=== PATIENT | female | born 1950 | race Caucasian/White ===

== ENCOUNTER 2020-09-17 09:12 | Outpatient (REF) | payer MEDICARE, SELFPAY ==
--- NOTE | ~2020-09-17 | MM_ITS ---
EXAMINATION: BONE DENSITOMETRY CLINICAL INDICATION: Age-related osteoporosis without current pathological fracture. COMPARISON: None (current study represents initial baseline exam). TECHNIQUE: Using a [employer] DXA System (software version: 13.1) manufactured by [employer], dual-energy x-ray absorptiometry was performed of the lumbar spine and right hip. The patient has had a left hip fracture. The images are of good technical quality. Summary results are attached. FINDINGS: AP SPINE L1-L2 (excluding L3 and L4): The data of L1-L4 has been changed to exclude the L3 and L4 vertebral bodies, because degenerative changes at these levels may cause overestimation of lumbar spine density. BMD 0.897 g/cm2, Z-score -0.6, T-score -2.2, osteopenia. RIGHT FEMUR, NECK: BMD 0.579 g/cm2, Z-score -1.6, T-score -3.3, osteoporosis. RIGHT FEMUR, TOTAL: BMD 0.635 g/cm2, Z-score -1.5, T-score -3.0, osteoporosis. IDENTIFIED RISK FACTORS: History of adult fracture. Rheumatoid arthritis. Height loss. Low calcium intake. Menopause. HISTORY OF FRACTURE: Femur/hip. MEDICATIONS: Vitamin D. MM/XR DEXA axial skeleton IMPRESSION: 1. DIAGNOSIS: Severe osteoporosis based on the lowest T-score value of -3.3 in the femoral neck and the prior history of fracture applying World Health Organization criteria. 2. 10-YEAR FRACTURE RISK PREDICTION, FRAX: Major osteoporotic fracture (clinical spine, forearm, hip or shoulder) 26.1%. Hip fracture 10.6%. 3. Treatment Recommendations: NOF guidelines recommend consideration for treatment in postmenopausal women and men age 50 and older presenting with the following: -A hip or vertebral (clinical or morphometric) fracture. -T-score less than or equal to -2.5 at the femoral neck or spine after appropriate evaluation to exclude secondary causes. -Low bone mass at the hip or spine and a 10-year fracture probability by FRAX of greater than or equal to 3% for hip fracture or greater than or equal to 20% for major osteoporotic fracture based on the [place] adapted WHO algorithm. 4. Other Recommendations: All treatment decisions require clinical judgment and consideration of individual patient factors, including patient preferences, comorbidities, previous drug use, risk factors not captured in the FRAX model (e.g. frailty, falls, vitamin D deficiency, increased bone turnover, interval significant decline in bone density) and possible under or overestimation of fracture risk by FRAX. Additional medical evaluation for secondary cause of low bone mineral density may be appropriate. FUTURE SCAN RECOMMENDATION: People with diagnosed cases of osteoporosis or at high risk for fracture should have regular bone mineral density tests. For patients eligible for Medicare, routine testing is allowed once every 2 years. The testing frequency can be increased to one year for patients who have rapidly progressing disease, those who are receiving or discontinuing medical therapy to restore bone mass, or have additional risk factors.
--- NOTE | ~2020-09-17 | MM_ITS ---
EXAMINATION: MM SCREENING DIGITAL BREAST TOMOSYNTHESIS, BILATERAL CLINICAL INFORMATION: Screening. Asymptomatic. The lifetime risk of breast cancer based on the Tyrer-Cuzick Model is 2%. COMPARISON: Outside mammography: 05/28/2016, 04/04/2014, 08/01/2013 ([facility]). TECHNIQUE: Digital breast tomosynthesis is performed in both the craniocaudal and mediolateral oblique views along with computer-aided detection (CAD). Synthesized 2D images are generated from the tomosynthesis. FINDINGS: There are scattered areas of fibroglandular density (ACR BI-RADS breast composition Category b). Parenchymal pattern is similar to prior studies. There is no significant mass or architectural abnormality or developing density. There are scattered bilateral benign coarse and vascular calcifications. The axilla and skin contours are unremarkable. MM/MM tomosynthesis screening BI IMPRESSION: No mammographic evidence of malignancy. ASSESSMENT: BI-RADS 2: Benign RECOMMENDATION: Routine annual mammography screening. This patient's information was entered into a reminder system with a target due date for their next mammogram.
== END 2020-09-17 09:13 | disposition home or self-care (01) ==
LOC: HO.MAMMO 09:12
PROVIDERS: PCP Pediatrics; Visit Provider Pediatrics
DX: Z12.31 Encounter for screening mammogram for malignant neoplasm of breast (principal); Z13.820 Encounter for screening for osteoporosis; M81.0 Age-related osteoporosis without current pathological fracture; M06.9 Rheumatoid arthritis, unspecified; Z78.0 Asymptomatic menopausal state; Z87.81 Personal history of (healed) traumatic fracture; Z79.899 Other long term (current) drug therapy
CPT/HCPCS: 77063; 77067; 77080

== ENCOUNTER 2022-01-22 12:31 | Outpatient (REF) | payer OTHER, SELFPAY ==
--- NOTE | ~2022-01-22 | MM_ITS ---
EXAMINATION: MM SCREENING DIGITAL BREAST TOMOSYNTHESIS, BILATERAL CLINICAL INFORMATION: Screening. Asymptomatic. The lifetime risk of breast cancer based on the Tyrer-Cuzick Model is 4%. COMPARISON: Mammography: September 17, 2020 and studies dating back to August 01, 2013 TECHNIQUE: Digital breast tomosynthesis is performed in both the craniocaudal and mediolateral oblique views along with computer-aided detection (CAD). Synthesized 2D images are generated from the tomosynthesis. FINDINGS: There are scattered areas of fibroglandular density (ACR BI-RADS breast composition Category b). There are no significant masses, abnormal calcifications, or other abnormalities. MM/MM tomosynthesis screening BI IMPRESSION: No significant changes from prior exam. ASSESSMENT: BI-RADS 1: Negative RECOMMENDATION: Routine annual mammography screening. This patient's information was entered into a reminder system with a target due date for their next mammogram.
== END 2022-01-22 12:32 | disposition home or self-care (01) ==
LOC: HO.MAMMO 12:31
PROVIDERS: Visit Provider Pediatrics
DX: Z12.31 Encounter for screening mammogram for malignant neoplasm of breast (principal)
CPT/HCPCS: 77063; 77067

== ENCOUNTER 2022-11-03 08:51 | Outpatient (REF) | payer OTHER, SELFPAY ==
[2022-11-03 14:37] LABS: MANUAL DIFF FLAG NO
[2022-11-03 14:43] LABS: Basophils Absolute Auto 0.1 X10*3/uL (0.0-0.2); Basophils Percent Auto 0.7 % (0-2); Eosinophils Absolute Auto 0.3 X10*3/uL (0.0-0.4); Eosinophils Percent Auto 3.5 % (0-4); Hematocrit 47.3 % (37.0-47.0); Hemoglobin 14.9 g/dl (12.0-16.0); Imm Gran Abs Auto 0.02 X10*3/uL (0.00-0.03); Imm Gran Pct Auto 0.3 % (0.0-0.4); Lymphocytes Absolute Auto 2.6 X10*3/uL (1.2-4.9); Lymphocytes Percent Auto 33.8 % (20-40); Mean Corpuscular HGB Conc 31.5 g/dl (31.0-35.0); Mean Corpuscular Hemoglobin 27.7 pg (27.0-33.0); Mean Corpuscular Volume 88.1 fL (80.0-98.0); Mean Platelet Volume 11.8 fL (9.4-12.3); Monocytes Absolute Auto 0.5 X10*3/uL (0.1-1.2); Monocytes Percent Auto 6.2 % (2-11); Neutrophils Absolute Auto 4.2 x10*3/uL (2.0-8.3); Neutrophils Percent Auto 55.5 % (45-73); Platelet Count 205 X10*3/uL (160-400); Red Blood Count 5.37 X10*6/uL (4.20-5.50); White Blood Count 7.6 X10*3/uL (4.8-10.8)
[2022-11-03 15:21] LABS: Alanine Aminotransferase 43 U/L (0-31); Albumin Level 4.2 g/dL (3.5-5.0); Alkaline Phosphatase 99 U/L (39-117); Anion Gap 17 (12-20); Aspartate Amino Transferase 25 U/L (5-31); Bilirubin Direct 0.2 mg/dL (0.0-0.5); Bilirubin Total 0.6 mg/dL (0.0-1.0); Blood Urea Nitrogen 19 mg/dL (9-16); Calcium 9.9 mg/dL (8.4-10.2); Carbon Dioxide 25 mmol/L (22-29); Chloride 107 mmol/L (96-108); Cholesterol 92 mg/dL (<200); Estimated Glomerular Filt Rate 60; Glucose Fasting 198 mg/dL (60-99); HDL Cholesterol 28 mg/dL (>40); LDL Cholesterol Calculated 27 mg/dL (<100); Sodium 144 mmol/L (135-145); Total Protein 7.2 g/dL (6.5-8.0); Triglycerides 185 mg/dL (<150)
[2022-11-03 15:39] LABS: TSH reflex Free T4 3.35 uIU/mL (0.32-4.0); Vitamin D 25-OH Total 44.8 ng/mL (>30)
[2022-11-03 15:40] LABS: Vitamin B12 410 pg/mL (200-900)
[2022-11-03 16:03] LABS: Creatinine Urine 59.07 mg/dL; Microalbumin Urine < 5.0 mg/L
== END 2022-11-03 08:52 | disposition home or self-care (01) ==
LOC: HO.CHCLDS 08:51
PROVIDERS: Visit Provider Pediatrics
DX: E11.9 Type 2 diabetes mellitus without complications (principal); M81.0 Age-related osteoporosis without current pathological fracture
CPT/HCPCS: 36415; 80048; 80061; 80076; 82043; 82306; 82607; 84443; 85025

== ENCOUNTER 2024-07-05 15:29 | Outpatient (REF) | payer OTHER, SELFPAY ==
--- OUTSIDE RECORDS SUMMARY | 2024-07-05 16:25 | XMS_ITS | Encounter Summary ---
Author Organization [employer] Address [address] [place] [address] Care Team Providers Care Broke Beater Operator Name Role Phone Christina Mckeon MD Primary Care Provider [phone] Fely So PharmD Unavailable [phone] Encounter Details Date Type Department Care Team (Latest Contact Info) Description 07/05/2024 Travel Social History Tobacco Use Types Packs/Day Years Used Date Smoking Tobacco: Never Passive Smoke Exposure: Never Smokeless Tobacco: Never Depression Answer Date Recorded Patient Health Questionnaire-9 Score 6 06/08/2024 Patient Health Questionnaire-9 Score 6 06/08/2024 Last PHQ-9: Questionnaire Data Not on file 0 06/08/2024 Housing Stability Answer Date Recorded What is your housing situation today? I have fidel ocasio 06/08/[address] you li ve. Do you have problems with any of the following? None of the above 06/08/2024 Food Insecurity Answer Date Recorded Within the past 12 months, y ou worried that your food would run out before you got money to buy more: Sometimes True 2024 Within the past 12 months,th e food you bought just didn't last and you didn't have enough money to get more: Never True 06/08/2024 Transportation Answer Date Recorded In the past 12 months, has l ack of transportation kept you from medical appts, meetings, work or from getting things needed for daily living? No 06/08/2024 Utilities Answer Date Recorded In the past 12 months, has t he electric, gas, oil or water company threatened to shut off services in your home? No 06/08/2024 Depression Answer Date Recorded Patient Health Questionnaire-2 Score 2 06/08/2024 Internet Access Answer Date Recorded Internet Access Q1 Yes 06/08/2024 Internet Access Q2 Not on file 06/08/2024 Comments Unknown Sex and Gender Information Value Date Recorded Sex Assigned at Female 01/05/2022 10:20 AM EDT Legal Sex Female 10:20 AM EDT Gender Identity Female 01/05/2022 10:20 AM EDT Sexual Orientation Straight 01/05/2022 10 :20 AM EDT documented as of this encounter Plan of Treatment Upcoming Encounters Date Type Department Care Team (Late st Contact Info) Description 08/10/2024 3:15 PM EDT Office Visit [facility] [address] [place] [address] Christina Mckeon MD [address] [place] [address] 08/28/2024 3:00 PM EDT Medication Management [facility] [address] [place] [address] Fely So, PharmD [address] [place] [address] documented as of this encounter Visit Diagnoses Not on filedocumented in this encounter Additional Health Concerns Assessment Noted Time PHQ-9 Depression Total Score: 6 06/09/19 25 9:34 AM EDT documented as of this encounter Care Teams Broke Beater Operator Relationship Specialty Start Date End Date Christina Mckeon MD [address] [place] [address] PCP - General Family Medicine 03/08/18 Fely So, PharmD [address] [place] [address] Pharmacist Internal Medicine 05/03/24 documented as of this encounter
--- OUTSIDE RECORDS SUMMARY | 2024-07-05 16:25 | XMS_ITS | Encounter Summary ---
Author Organization [employer] Address [address] [place] [address] Care Team Providers Care Bedspread Inspector Name Role Phone Christina Mckeon MD Primary Care Provider [phone] Fely So PharmD Unavailable [phone] Reason for Visit * Reason Onset Date Comments referral status 05/11/2022 Encounter Details Date Type Department Care Team ([facility] st Contact Info) Description 05/11/2022 Telephone [facility] [address] [place], [place] [id number] Christina Mckeon MD [address] [place], [place] [phone] referral status Social History Tobacco Use Types Packs/Day Years Used Date Smoking Tobacco: Never Smokeless Tobacco: Never Depression Answer Date Recorded Patient Health Questionnaire-9 Score 11 03/13/2022 Depression Answer Date Recorded Patient Health Questionnaire-2 Score 5 03/13/2022 Comments Unknown Sex and Gender Information Value Date Recorded Sex Assigned at Female 01/05/2022 10:20 AM EDT Legal Sex Female 10:20 AM EDT Gender Identity Female 01/05/2022 10:20 AM EDT Sexual Orientation Straight 01/05/2022 10 :20 AM EDT COVID-19 Exposure Response Date Recorded In the last 10 days, have yo u been in contact with someone who was confirmed or suspected to have Coronavirus/COVID-19? No / Unsure 04/29/2022 10:03 AM EST documented as of this encounter Miscellaneous Notes * Telephone Encounter - Elham Sifuentes - 05/11/2022 12:26 PM EST Tc from pt requesting status on referral for orthopaedic . Pt would like a call back to where referral will be sent ? documented in this encounter Plan of Treatment Upcoming Encounters Date Type Department Care Team (Late st Contact Info) Description 08/10/2024 3:15 PM EDT Office Visit [facility] [address] [place] [address] Christina Mckeon MD [address] [place] [address] 08/28/2024 3:00 PM EDT Medication Management [facility] [address] [place] [address] Fely So PharmD [address] [place] [address] documented as of this encounter Visit Diagnoses Diagnosis Dietary counseling Dietary surveillance and counseling Exercise counseling documented in this encounter Additional Health Concerns Assessment Noted Time PHQ-9 Depression Total Score: 11 023 9:52 AM EST documented as of this encounter Care Teams Bedspread Inspector Relationship Specialty Start Date End Date Christina Mckeon MD [address] [place] [address] PCP - General Family Medicine 03/08/18 Fely So, Raúl [address] [place] [address] Pharmacist Internal Medicine 05/03/24 documented as of this encounter
--- OUTSIDE RECORDS SUMMARY | 2024-07-05 16:25 | XMS_ITS ---
Author Organization [facility] Address [address] [place] [address] [place] [id number] Care Team Providers Care Hollow Handle Knife Assembler Name Role Phone Christina Mckeon Primary Care Provider Unavailab Mervat Benson Unavailable [phone] Encounters Encounter Location Date Provider Diagnosis [address] [address] 07/08/2023 Mervat Mackey Plan Of Treatment No Information Progress Notes * Killian LOGANB:1949 (74 yo F)Acc No.[id number]:07/08/2023 Progress Note Patient:?DOREEN Kelly Provider:?Mervat Mackey DPM :1950???Age:73 Y???Sex:Female D ate:07/08/2023 Address:[address] [place] [address], [place] [address] [address], [id number] Pcp:Christina Mckeon Subjective: * Chief Complaints: * ??? * Medical History:? Objective: * Vitals:? Assessment: Plan: * Treatment: * Images: * The named appointment provid er may or may not be the originator of this progress note, and it is not deemed complete until electronically signed by the appointment provider. Sign off status: Pending * Provider:?Mervat Mackey DPM Date:?04/2023 Generated for Joao pitts/Arturo/eTransmitting on:?07/05/2024 04:24 PM EDT
--- OUTSIDE RECORDS SUMMARY | 2024-07-05 16:25 | XMS_ITS | Data Portability ---
Author Organization [employer] [place] in - jigl Address [address] [place] [phone] Care Team Providers Care Value Analysis Coordinator Name Role Phone CHRISTOPHER MCNALLY Primary Care Provider [phone] HIM [facility] OTHER [facility] Referring Provider [facility] OTHER Assessment Encounter Date Assessment Date Assessment LastModified by Organization Details LastModified Time 12/12/2022 12/12/2022 I provided real -time medical direction via phone for this encounter, and was available for additional phone based assistance as needed. I have reviewed and agree with the Assessment and Plan as documented by the Sack Filler. Patient given the opportunity to ask questions. As per above, Patient requesting another Toradol shot as she did not complete her appointment with PCP on the 4th as described in the previous visit. Asking also for prescriptions for Lidoderm patch and Tylenol. Discussed risk and benefits of continued Toradol use so we will use a smaller dose at 15 mg x 1. We stressed the importance of getting in to her primary care physician. I did call in prescriptions for Tylenol and lighted derm. Stressed the importance that we would not continue to use Toradol given the fact that she is anticoagulated and repeated doses may cause kidney damage as well as increase her risk for bleeding. Patient voiced understanding. We discussed the diagnostic uncertainty of home visits and the risk associated with this. In this case, the patient and I felt this to be an acceptable and reasonable amount of risk given the benefit of avoiding an ED visit. We discussed the need to seek care urgently/emergentl y in the setting of any new or worsening serious symptoms, particularly fever chills lightheadedness altered mental status [email or web address] Not available 12/12/2022 10:36:31 05/25/2023 05/25/2023 Ms. Kelly Silver is a 73yoF w/ a PmHx of DM2, HTN who is seen today for further evaluation of weakness and cough. Ms. Silver reports that for the past two days she has just been feeling unwell, with significant weakness and fatigue. She has developed a cough productive of brownish sputum and has had chills and subjective fevers at home. Her blood sugar has been running higher than usual and today was in the 300s and she requested an instED evaluation. She denies chest pain, nausea/vomiting, or abdominal pain. She does note that she was sick with a cold/virus three weeks ago but believed she fully recovered from that prior to gettin sick today. VSS. Sack Filler on site reports clear focal rhonchi of the LLL. POC COVID/flu negative. POC glucose 360. POC labs obtained and reassuringly with a normal bicarb, no anion gap, normal creatinine. Given 500cc of IVF, 1g IV ceftriaxone, and 500mg of PO azithromycin. Will treat as a post-viral bacterial pneumonia. Encouraged PO fluids and monitoring her blood sugar. Rx for cefpodoxime and azithromycin for CAP coverage sent to pharmacy. Red flags reviewed with space systems operations manager. Primary team, Ms. Silver would benefit from a check in over the next few days to make sure she's doing better. Not available 05/25/2023 14:50:47 08/09/2023 08/09/2023 Ms. Kelly Silver is a 73yoF w/ a PmHx of HTN, CAD, DM2 on dual antiplatelet therapy who is seen today for further evaluation after a fall last week. Ms. Silver reports that last week she wears visiting family in [facility] when she suffered a mechanical trip and fall while outside. She reports tripping over a stone outside and fell backwards and hit the back of her head. Since the fall, she reports increasing forgetfulness and word finding difficulty. She states that she will sometimes start talking and then lose the ability to complete the sentence 2/2 word finding difficulty. She has also been having intermittent blurry vision. VSS. Sack Filler on site reports hematoma on posterior occiput. Bruise on left knee without bony tenderness. While higher risk for intracranial injury after a fall on antiplatelet therapy, the fact that she is neurologically intact several days after the incident makes acute catastrophic ICH less likely. Her neurologic complaints after a clear strike are concerning though and she would benefit from CT imaging to evaluate for bleed in order to guide continued antiplatelet therapy and follow up. Recommended ED presentation, which she will pursue this afternoon when her son arrives home around 2:30pm. Primary team, Ms. Silver would benefit from follow up in the next week or so. If head imaging negative, she would like benefit from a post-concussive evaluation. Not available 08/09/2023 12:25:53 09/15/2023 09/15/2023 I provided real -time medical direction via phone for this encounter, and was available for additional phone based assistance as needed. I have reviewed the Assessment and Plan as documented by the Sack Filler. We discussed the diagnostic uncertainty of home visits and the risk associated with this. In this case I advised the patient via the medic that her EKG is nonspecific but that we cannot do a cardiac workup in home, I I requested the medic explain I cannot rule out any cardiac event based on 1 EKG. she did not want to go to the ER -patient verbalized understanding to the medic and advised if she had any worsening or changing of her chest discomfort along with the other red flags she needed to go in to the ER. She verbalized understanding. The patient given the opportunity to ask questions. Advised if develops worsening or different CP/severe SOB/turning blue/uncontrolled n/v/d or black/bloody emesis or stool/ AMS/ syncope/ hi fever/ to call 911- verbalized understanding of instruction [email or web address] Not available 09/15/2023 20:33:02 Plan of Treatment Reminders Order Date Submit Date Provider Last Modified By Organization Details Last Modified Time Details Appointments None recorded. Lab BMP, serum or plasma 2023 024 [email or web address] 0 [facility], [address] [place] [address], [phone] 4 20:31:59 urinalysis, dipstick 2023 024 [email or web address] 0 [facility], [address] [place] [address], [phone] 4 20:32:01 rapid flu (A+B) 2023 024 [email or web address] 0 [facility], [address] [place] [address], [phone] 4 20:32:02 rapid SARS CoV 2 Ag, QL IA, respiratory specimen 2023 024 [email or web address] 0 [facility], [address] [place] [address], [id number] 4 20:32:03 Referral None recorded. Procedures None recorded. Surgeries None recorded. Imaging electrocard iogram 2023 024 [email or web address] 0 [facility], [address] [place] [address], [id number] 4 20:31:56 Medication Orders cefpodoxime 200 mg tablet 2023 024 [id number], [address] [place], [address], 4 14:35:18 azithromyci n 250 mg tablet 2023 024 [id number], [address] [place], [address], 4 14:35:16 ketorolac 15 mg/mL injection solution 2022 023 [email or web address] Not available 10:38:48 Tylenol Extra Strength 500 mg tablet 2022 023 [id number], [address] [place], [address], 3 10:38:56 lidocaine 4 % topical patch 2022 023 [id number], [address] [facility] [place], [address], 3 10:38:55 Patient TargetsNo targets recorded. Patient InstructionsNo instructions recorded. Reason for Referral None Reported. Results Created Date Observation Date Name Description Value Unit Range Abnormal Flag Note LastModifiedBy Organization Detail LastModifiedTime 12/08/19 23 12/07/2022 gluco se, finge rstic k, blood Blood Glucose: mg/dl 339 Not Available [address], [address] [place] [address] 12/07/2022 22:00:45 09/15/19 24 09/15/2023 urina lysis , dipst ick Leukocytes neg Not Available [facility] [address] [place] [address], [address] [place] [address] 09/15/2023 12:35:35 09/15/19 24 09/15/2023 urina lysis , dipst ick Nitrite negati ve Not Available Main - [facility] [address] [place] [address], [address] [place] [address] 09/15/2023 12:35:35 09/15/19 24 09/15/2023 urina lysis , dipst ick pH 5 Not Available Main - [facility] [address], [address] [place] [address] 09/15/2023 12:35:35 09/15/19 24 09/15/2023 urina lysis , dipst ick Specific Cove 1.015 Not Available [facility] [address] [place] [address], [address] [place] [address] 09/15/2023 12:35:35 09/15/19 24 09/15/2023 urina lysis , dipst ick Appearance clear Not Available Main - [facility] [address] [place] [address], [address] [place] [address] 09/15/2023 12:35:35 09/15/19 24 09/15/2023 urina lysis , dipst ick Color yellow Not Available Main - [facility] [address], [address] [place] [address] 09/15/2023 12:35:35 09/15/19 24 09/15/2023 BMP, serum or plasm a GLU . He is387 Not Available Main - [facility] [address] [place] [address], [address] [place] [address] 09/15/2023 12:35:34 09/15/19 24 09/15/2023 rapid SARS CoV 2 Ag, QL IA, respi rator y speci men rapid SARS CoV 2 Ag, QL IA, respiratory specimen negati ve Not Available [facility] [address] [place] [address], [address] [place] [address] 09/15/2023 12:35:43 09/15/19 24 09/15/2023 rapid flu (A+B) Flu negati ve Not Available Main - [facility] [address] [place] [address], [address] [place] [address] 09/15/2023 12:35:41 09/15/19 24 09/15/2023 niranjan lafleur am No observ ation record ed. [email or web address] [address], [phone] 09/15/2023 20:31:54 Result Notes None recorded. Procedures Surgical History None recorded. Imaging Results Imaging Date Name Status LastModified by Organization Details LastModified Time 09/15/2023 electrocardiogram completed [email or web address] [address], [phone] 09/15/2023 20:31:54 Procedure Notes None recorded. Medical Equipment None Reported. Allergies Allergen ID Allergen Name Allergen Category Reaction Reaction Severity Criticality Documentation Date Start Date Code Code System Note Provider Name and Address Organization Details Recorded Time 3414 oxycodone medicatio n Not available Not available Not available 12/07/2022 7804 RxNorm Una Miranda MD [address] [place] [address],[address], [place], [address] [employer] 3 21:50:45 9151 acetamino phen medicatio n Not available Not available Not available 01/04/2024 161 RxNorm Not Available [employer] 4 03:49:28 9152 Product containin g penicilli n (product) medicatio n Not available Not available Not available 01/04/2024 06631 8001 SNOMED Not Available [employer] 4 03:49:28 Medications Name Sig Start Date Stop Date Status Note LastModified by Organization Details LastModified Time medbox status USE DIRECTED active Not Available Not Available No t Available atorvastatin 40 mg tablet TAKE ONE TABLET AT BEDTIME active Not Available Not Available No t Available atorvastatin 80 mg tablet TAKE ONE TABLET EVERY NIGHT AT BEDTIME active Not Available Not Available N ot Available venlafaxine ER 75 mg capsule,exte nded release 24 hr TAKE ONE CAPSULE EVERY MORNING WITH FOOD active Not Available Not Available No t Available cefpodoxime 200 mg tablet TAKE 1 TABLET BY MOUTH EVERY 12 HOURS FOR 7 DAYS active Not Available Not Available N ot Available azithromycin 250 mg tablet TAKE 1 TABLET BY MOUTH EVERY DAY FOR 4 DAYS active Not Available Not Available No t Available lisinopril 20 mg tablet TAKE ONE TABLET BY MOUTH EVERY MORNING active Not Available Not Available No t Available melatonin 3 mg tablet TAKE TWO TABLETS EVERY DAY AT BEDTIME active Not Available Not Available N ot Available aspirin 81 mg tablet,delay ed release TAKE ONE TABLET EVERY MORNING active Not Available Not Available No t Available acetaminophe n 500 mg tablet TAKE 1 TABLET BY MOUTH TWICE A DAY FOR 15 DAYS active Not Available Not Available No t Available ketorolac 30 mg/mL (1 mL) injection solution 0.5 mL IM x1 2022 active Not Available Not Available Not Avai lable meclizine 25 mg tablet TAKE ONE TABLET THREE TIMES DAILY NEEDED FOR DIZZINESS active Not Available Not Available No t Available ascorbic acid (vitamin C) 250 mg tablet TAKE ONE TABLET EVERY MORNING WITH iron active Not Available Not Available No t Available cephalexin 500 mg capsule TAKE ONE CAPSULE FOUR TIMES DAILY UNTIL FINISHED active Not Available Not Available No t Available pantoprazole 40 mg tablet,delay ed release TAKE ONE TABLET EVERY MORNING BEFORE BREAKFAST active Not Available Not Available No t Available oseltamivir 75 mg capsule TAKE ONE CAPSULE TWICE DAILY UNTIL FINISHED active Not Available Not Available No t Available ropinirole 0.5 mg tablet TAKE ONE TABLET EVERY NIGHT AT BEDTIME ONE TO THREE HOURS BEFORE BEDTIME active Not Available Not Available No t Available lisinopril 5 mg tablet TAKE ONE TABLET EVERY MORNING active Not Available Not Available No t Available metoprolol succinate ER 25 mg tablet,exten ded release 24 hr TAKE ONE TABLET EVERY MORNING active Not Available Not Available No t Available loratadine 10 mg tablet TAKE ONE TABLET EVERY MORNING active Not Available Not Available No t Available Alcohol Prep Pads USE THREE TIMES DAILY DIRECTED active Not Available Not Available Not Available nitrofuranto in monohydrate/ macrocrystal s 100 mg capsule TAKE 1 CAPSULE BY MOUTH TWICE A DAY FOR 7 DAYS active Not Available Not Available No t Available UltiCare Pen Needle 31 gauge x 5/16 USE ONE FOUR TIMES DAILY active Not Available Not Available No t Available cholecalcife rol (vitamin D3) 25 mcg (1,000 unit) tablet TAKE ONE TABLET IN THE MORNING AND EVENING active Not Available Not Available Not Available FeroSul 325 mg (65 mg iron) tablet TAKE ONE TABLET EVERY MORNING active Not Available Not Available No t Available Lantus Solostar U-100 Insulin 100 unit/mL (3 mL) subcutaneous pen INJECT 55 UNITS SUBCUTANEOU SLY AT BEDTIME active Not Available Not Available No t Available diclofenac 1 % topical gel APPLY 2 GRAM'S TO AFFECTED AREA(s) TWICE DAILY NEEDED active Not Available Not Available No t Available Brilinta 90 mg tablet TAKE ONE TABLET IN THE MORNING AND EVENING active Not Available Not Available Not Available Antacid-Anti gas 200 mg-200 mg-20 mg/5 mL oral suspension TAKE 10 ml's BY MOUTH FOUR TIMES DAILY NEEDED FOR STOMACH active Not Available Not Available Not Available OneTouch Verio test strips TEST BLOOD SUGAR TWICE DAILY active Not Available Not Available No t Available Jardiance 10 mg tablet TAKE ONE TABLET EVERY MORNING active Not Available Not Available No t Available Trulicity 1.5 mg/0.5 mL subcutaneous pen injector INJECT ONE PEN (=1.5MG) SUBCUTANEOU SLY ONCE A WEEK DIRECTED active Not Available Not Available No t Available Trulicity 0.75 mg/0.5 mL subcutaneous pen injector INJECT ONE PEN (=0.75MG) SUBCUTANEOU SLY ONCE A WEEK DIRECTED active Not Available Not Available No t Available Pentips Pen Needle 32 gauge x 5/32 USE FOUR TIMES DAILY active Not Available Not Available Not Available OneTouch Verio Flex Meter active Not Available Not Available Not Available OneTouch Delica Plus Lancet 33 gauge TEST BLOOD SUGAR TWICE DAILY active Not Available Not Available No t Available Salonpas (lidocaine) 4 % topical patch APPLY 1 PATCH IN PAINFUL AREA FOR 12 HOURS THEN REMOVE FOR 12 HOURS, THEN REPEAT. active Not Available Not Available No t Available Vitals Date Recorded Respiratory rate Heart rate Oxygen saturation Oxygen saturation in Arterial blood by Pulse oximetry Body temperature Systolic blood pressure Diastolic blood pressure Provider Name and Address Organization Details Last Updated DateTime 3 16 /min 81 /min 94 % 94 % 98.4 [degF] 126 mm[Hg] 75 mm[Hg] Not Available [employer] 3 10:32:05 Date Recorded Body weight Oxygen saturation Oxygen saturation in Arterial blood by Pulse oximetry Body temperature Heart rate Respiratory rate Body height Systolic blood pressure Diastolic blood pressure Provider Name and Address Organization Details Last Updated DateTime 4 53199.2 08 g 96 % 96 % 99 [degF] 80 /min 18 /min 157.48 cm 125 mm[Hg] 78 mm[Hg] Not Available [employer] 4 11:36:25 Date Recorded Body weight Body height Body temperature Oxygen saturation Oxygen saturation in Arterial blood by Pulse oximetry Respiratory rate Heart rate Systolic blood pressure Diastolic blood pressure Provider Name and Address Organization Details Last Updated DateTime 4 43894.8 g 160.02 cm 99.1 [degF] 95 % 95 % 16 /min 72 /min 172 mm[Hg] 87 mm[Hg] Not Available [employer] 4 13:42:17 Date Recorded Oxygen saturation Oxygen saturation in Arterial blood by Pulse oximetry Heart rate Respiratory rate Systolic blood pressure Diastolic blood pressure Provider Name and Address Organization Details Last Updated DateTime 4 95 % 95 % 78 /min 16 /min 158 mm[Hg] 75 mm[Hg] Not Available [employer] 4 12:18:50 Date Recorded Body weight Body temperature Respiratory rate Heart rate Oxygen saturation Oxygen saturation in Arterial blood by Pulse oximetry Systolic blood pressure Diastolic blood pressure Provider Name and Address Organization Details Last Updated DateTime 4 17110.1 68 g 98.5 [degF] 16 /min 84 /min 96 % 96 % 158 mm[Hg] 82 mm[Hg] Not Available [employer] 4 12:08:55 Social History None recorded. Functional Status None recorded. Mental Status None recorded. Family History Nothing Reported. Medical History No medical history recorded. Gynecological HistoryNo gynecological history recorded. Obstetrics History GPAL:G 0 P 0 0 0 0 Past Encounters Encounter ID Performer Location Encounter Start Date Encounter Closed Date Diagnosis/Indication Diagnosis SNOMED-CT Code Diagnosis ICD10 Code Diagnosis Note [id number] Una Miranda MD Main - [facility] [address] [place] [phone] 12/07/2022 12:15:40 12/07/2022 23:00:09 Musculoskeletal pain 311128228 M79.10 Patient s/p fall with work-up/im aging already completed at [facility] ED-see medic note above no fractures revealed in her left upper extremity apparently and no rib fractures reported to the patient on chest CT. due to subcutaneo us lump on her left chest could be an organized subcutaneo us hematoma post fall or she could have a hairline rib fracture that was not picked up on the CT. Patient denies history of peptic ulcer disease, GERD, or known ckd-her renal function was normal on 05/07/2021 BUN was 16 and creatinine 0.85. However the patient is on Brilinta and aspirin. I advised we can give 1 dose of ketorolac for pain control but would be very low-dose to give repeat doses due to the risk of CHANO and bleeding with repeated doses of this and sent Has appointmen t with PCP on Wednesday- 12/09-advis ed to keep it as her PCP in a wish to get further imaging. advised ice / wrapped in a towel alternatin g w/ gentle heat q 3-4H w/a to affected areas-advi sed to hold ribs under her left breast with a painful hard lump is, with a small blanket or pillow if she coughs or when practicing deep breathing for comfort-me dic reviewed red flags. Patient is also significan tly hyperglyce rene advised not to skip doses [place] [id number] Kristin Monaco MD Main - [facility] [address] [place] [phone] 12/12/2022 10:32:04 12/15/2022 00:36:55 Muscle pain [id number] M79.10 [id number] Rodolfo Mejía MD Main - [facility] [address] [place] [phone] 03/30/2023 11:36:19 03/30/2023 12:13:36 Viral upper respiratory tract infection [id number] J06.9 This 73-year-ol d female has had typical URI symptoms for four days. Her COVID-19, flu and strep screens were negative. I suspect she has a viral URI. I recommende d symptomati c treatment with Mucinex or Robitussin . She will follow-up with her PCP for any persistent symptoms. The patient agreed with this plan. [id number] Briana Whyte MD Main - [facility] [address] [place] [phone] 05/25/2023 13:36:33 05/25/2023 20:04:06 Community acquired pneumonia [id number] J18.9 [id number] Briana Whyte MD Main - [facility] [address] [place] [phone] 08/09/2023 12:16:11 08/10/2023 12:37:42 Closed injury of head [id number] 06 S09.90XA [id number] Una Miranda MD Main - [address] [phone] 09/15/2023 12:08:53 09/15/2023 21:40:03 Chest discomfort [id number] R07.89 See discussion above Malaise [id number] R53.81 Patient is hyperglyce rene but states only had scrambled eggs with ham, coffee and Splenda for breakfast has not had lunch yet. She did skip her Jardiance yesterday but took 50 units of Lantus last night. I advised her not to miss any doses of diabetes medication to call her PCP regarding her hyperglyce kay and adjusting her medication doses GAGAN as well as to discuss her vague chest discomfort . Health Concerns Section Related Observation LastModified by Organization Detai ls LastModified Time None Recorded Concern Status LastModified by Organization Details LastModified Time None Recorded Advance Directives Directive None Recorded Payers Encounter Date Sequence Insurance Name Policy Number Policy Payne Covered Member ID Payne Member ID Guarantor Name 12/12/2022 1 [facility] [employer] - DOS ON OR AFTER 2022 - DUAL ELIGIBLE - RESIDENTIAL OPTIONS AND ONE CARE (MEDICARE REPLACEMENT/ADV ANTAGE - HMO) Kelly Silver [id number] Kelly Silver 03/30/2023 1 [facility] [employer] - DOS ON OR AFTER 2022 - DUAL ELIGIBLE - RESIDENTIAL OPTIONS AND ONE CARE (MEDICARE REPLACEMENT/ADV ANTAGE - HMO) Kelly Silver [id number] Kelly Silver 05/25/2023 1 [facility] [employer] - DOS ON OR AFTER 2022 - DUAL ELIGIBLE - RESIDENTIAL OPTIONS AND ONE CARE (MEDICARE REPLACEMENT/ADV ANTAGE - HMO) Kelly Silver [id number] Kelly Silver 08/09/2023 1 [facility] - DOS ON OR AFTER 2022 - DUAL ELIGIBLE - RESIDENTIAL OPTIONS AND ONE CARE (MEDICARE REPLACEMENT/ADV ANTAGE - HMO) Kelly Silver [id number] Kelly Silver 09/15/2023 1 [facility] [employer] - DOS ON OR AFTER 2022 - DUAL ELIGIBLE - RESIDENTIAL OPTIONS AND ONE CARE (MEDICARE REPLACEMENT/ADV ANTAGE - HMO) Kelly Silver [id number] Kelly Silver Notes Date Note Type Note Provider Name and Address Organization Details Recorded Time 12/12/2022 text/html HPI: Call to Kelly Silver, seen at [facility] yesterday for back and arm pain following fall. Prior to that pt also seen at [facility] 12/04/22 Per pt still having pain and has no pain medication at home. Per notes pt dx with bruised rib. Pt instructed to follow up with PCP PRN. No appts at [facility]. .................. .................. .................. .................. .................. .................. .................. ............... CRC Nursing Assessment: Comments: CRC RN did not require any additional information to process this visit---- 12/11 6:40p call to member to give ETA, member is tired and requesting to be seen tomorrow 12/12- Shahla Monaco MD [address] [place] [address],[address], [place], [phone], [facility] - [employer] 12/12/2022 10:39:09 03/30/2023 text/html HPI: Hx. CVA Patient with two day history of cough and congestion. Cough with greenish phlegm. No Fever ear pain in left ear. .................. .................. .................. .................. .................. .................. .................. ............... CRC Nurse Triage Notes (Jenni Newman): Comments: No further information needed to process visit. Dispatch the pt would like to reschedule for the AM - Adjusted - Emelina RN .................. .................. .................. .................. .................. .................. .................. ............... Baseline Information: Baseline Creatinine: 0.92 mg/dL Rodolfo Mejía MD [address] [place] [address],[address] [facility], [place], [address], [employer] 03/30/2023 11:39:45 05/25/2023 text/html CRC Nurse Triage Notes (Elías Webb): Reason For Request: PT reporting weakness that is causing the member to feel as if she might fall>looking to have her BP checked and to be assessed>mbr noticed symptoms today when making coffee earlier. Chief Complaints: Weakness/Lethargy PMH: Hypertension, Diabetes, Heart Disease Allergies: Acetaminophen, Penicillin Comments: Rn Pediatric [facility]cu verified the member's name//address and phone number. Education provided on the response time and the member was advised to monitor reported s/s and seek emergency treatment if needed. Member reports feeling weak and worried about falling - Symptoms started this morning - Denies CP and SOB - Denies Palpitations - Denies CROFT - Member is requesting a wellness check to have her vitals checked .................. .................. .................. .................. .................. .................. .................. ............... Sack Filler Note From Deion Brownlee: 73 yo F - c/o feeling weak and some flu like symptoms. Pt reports waking up yesterday feeling weak and worried she might fall. it continued to today, when she called. Pt reports being sick with the flu about 3 weeks ago and reports getting over it. She sts she is much worse today than yesterday. Pt reports having elevated blood sugar (364) this morning and denies eating anything outside the normal. Pt is a type 2 diabetic. Pt reports she does not take insulin but takes Ozempic. Pt was taking metformin but had a Rx change about 1 month ago. However, after checking, pt is on Lantus, as seen in the fridge and no evidence of Ozempic was seen. Pt C/O: Cough with brown phlegm production. Slight fever with chills very light Chest pain when coughing. lethargy and weakness Loss of appetite Body pain Pt denies: SOB N/V/D CROFT POC testing: Covid- NEG Flu- NEG [Assessment] No edema noted. Right lung is clear, Base on left side had rales. [MD Consult] IV and Labs - established 18 L AC. 1g IV Ceftriaxone - administers. 500mg PO Azithromycin - Administered. 500 ml LR - Administered. iSTAT - completed and uploaded. D/C instructions: Monitor POC. Rx called into [facility]. One for 4 days, one for 7 days. Take both in their entirety even if you start to feel better. STOP if redness, Urticaria, SOB, or other allergic reaction symptoms develop. Discussed red flags with pt, and when to seek 911/EMS. .................. .................. .................. .................. .................. .................. .................. ............... Disposition: Benjamin Briana Whyte MD [address] [facility],[address], [place], [address], [employer] 05/25/2023 14:50:52 08/09/2023 text/html HPI: Call returned to Kelly Silver to triage below. Reports having a fall last week. Per pt was not a witnessed fall. Per pt did not seek care at ER . Per pt hit arm and head. Per pt slipped and fell. No LOC. Per pt no vomiting or headache since fall. Pt states did have some confusion after fall. Currently pt alert, speaking clearly, oriented to person , place and time. Pt declines ER now. Accepted [facility] referral for exam in home. No bruising per patient. .................. .................. .................. .................. .................. .................. .................. ............... CRC Nurse Triage Notes (Aubrey Alvarez): Comments: HPI reviewed by this RN, no further information needed to process visit -Shellie Alvarez RN .................. .................. .................. .................. .................. .................. .................. ............... Sack Filler Note From Jhonny Calix: Pt reports a slip and fall incident while in [place] 1.5 weeks ago. Pt sts she hit the back of her head and left knee. Pt denies any LOC but sts since the fall she has had intermittent blurry vision and has been forgetting what she was saying mid sentence. Pt denies any severe CROFT, dizziness or loss of balance. Pt is alert, NAD. VSS. Afebrile. Non focal neuro exam. Normal gait. Pupils 3 mm +PERRLA. Pt has golf ball size hematoma on the lower left back of head. Small bruise noted on left knee. Pt advised she should go to the ED for imaging. Pt sts her family will take her this afternoon. .................. .................. .................. .................. .................. .................. .................. ............... Disposition: Fulfilled Briana Whyte MD [address] [facility],[address], [place], [address], [employer] 08/09/2023 17:35:17 09/15/2023 text/html HPI: HX: CVA, Depression.Patient with overall pain sudden onset last night feels terrible no home covid testing done. .................. .................. .................. .................. .................. .................. .................. ............... CRC Nurse Triage Notes (Michelle Butt): Comments: CRC RN DID NOT NEED FURTHER INFO Sack Filler POC Test Results from [facility] (12:16:13) pH: 7.465 pH units pCO2: 36.8 mmHg pO2: 46.1 mmHg Na: 145 mmol/L K: 4.5 mmol/L iCa: 1.23 mmol/L Cl: 105 mmol/L TCO2: 26.4 mEq/L Hct: 47 % Hb: 15.8 g/dL Glu: 387 mg/dL Lac: 1.51 mmol/L Cr: 0.72 mg/dL BUN: 13 mg/dL A .................. .................. .................. .................. .................. .................. .................. ............... Sack Filler Note From Nicolas Rico: Pt co feeling pinching sensation in chest and right calf yesterday and sts still feels it a little today. Pt sts feels like bugs pinching you inside. Pt sts today she feels run down. Pt denies NVD, cough, NC, fevers, sob, headache , dizziness , blurred vision or urinary symptoms. Pt sts she did miss her diabetes medication yesterday. Pt sts she took it today. Baseline vitals assessed, lungs clear, abdomen benign, Covid and flu swab negative, ekg performed unremarkable, urine dip benign, clear yellow urine, POc bloodwork unremarkable other than elevated BG. [facility] contacted and advised pt to follow up with pcp in regards to BG levels. Pt education on signs indicating the ER. Sack Filler Allergies: Acetaminophen, Penicillin .................. .................. .................. .................. .................. .................. .................. ............... Disposition: FulfilledSEGMD: Per record review her history includes but is not limited to HTN, DM2, CAD, LVEF 25 to 30% CVA, depression Una Miranda MD [address] [place] [address],[address], [place], [address], [employer] 09/15/2023 20:33:11 OBGyn Episode No OBEpisode recorded.
--- OUTSIDE RECORDS SUMMARY | 2024-07-05 16:25 | XMS_ITS | Encounter Summary ---
Author Organization [employer] Address [address] [facility] 7 [place] [address] Care Team Providers Care Carbon Blocks Press Operator Name Role Phone Christina Mckeon MD Primary Care Provider [phone] Fely So PharmD Unavailable [phone] Reason for Visit * Reason Comments Med Refill Encounter Details Date Type Department Care Team (Late Contact Info) Description 08/20/2022 Refill [facility] CHC MED & PEDS [address] [place], [place] [phone] Andrew Ward MD [address] [place] [address] Social History Tobacco Use Types Packs/Day Years [...] Encounters Date Type Department Care Team (Late Contact Info) Description 08/10/2024 3:15 PM EDT Office Visit [facility] CHC MED & PEDS [address] [place] [address] Christina Mckeon MD [address] [place], [place] [phone] 08/28/2024 3:00 PM EDT Medication Management [facility] MED & PEDS [address] [place] [address] Fely So PharmD [address] [place] [address] documented as of this encounter Visit Diagnoses Not on filedocumented in this encounter Additional Health Concerns Assessment Noted Time PHQ-9 Depression Total Score: 11 023 9:52 AM EST documented as of this encounter Care Teams [employer] Press Operator Relationship Specialty Start Date End Date Christina Mckeon MD [address] [place] [address] PCP - General Family Medicine 03/08/18 Fely So, Raúl [address] [place] [address] Pharmacist Internal Medicine 05/03/24 documented as of this encounter
--- OUTSIDE RECORDS SUMMARY | 2024-07-05 16:25 | XMS_ITS | Encounter Summary ---
Author Organization [employer] Address [address] [facility] 7 [place] [address] Care Team Providers Care Low Pressure Firer Name Role Phone Christina Mckeon MD Primary Care Provider [phone] Fely So PharmD Unavailable [phone] Reason for Visit * Reason Comments Med Refill Encounter Details Date Type Department Care Team (Late st Contact Info) Description 08/30/2022 Refill [facility] CHC MED & PEDS [address] [place] [address] Alisa Green MD [address] [place] [address] Social History Tobacco Use Types Packs/Day Years [...] Description 08/10/2024 3:15 PM EDT Office Visit [facility] MED & PEDS [address] [place] [address] Christina Mckeon MD [address] [place] [address] 08/28/2024 3:00 PM EDT Medication Management [facility] MED & PEDS [address] [place] [address] Fely So PharmD [address] [place] [address] documented as of this encounter Visit Diagnoses Not on filedocumented in this encounter Additional Health Concerns Assessment Noted Time PHQ-9 Depression Total Score: 11 023 9:52 AM EST documented as of this encounter Care Teams Low Pressure Firer Relationship Specialty Start Date End Date Christina Mckeon MD [address] [place] [address] PCP - General Family Medicine 03/08/18 Fely So, Raúl [address] [place] [address] Pharmacist Internal Medicine 05/03/24 documented as of this encounter
--- OUTSIDE RECORDS SUMMARY | 2024-07-05 16:25 | XMS_ITS | Encounter Summary ---
Author Organization [employer] Address [address] [facility] [address] [place] [address] Care Team Providers Care Planning Engineer Name Role Phone Christina Mckeon MD Primary Care Provider [phone] Fely So PharmD Unavailable [phone] Reason for Visit * Reason Comments Med Refill Encounter Details Date Type Department Care Team ([facility] st Contact Info) Description 04/03/2022 Refill [facility] CHC MED & PEDS [address] [place], [place] [phone] Christina Mckeon MD [address] [place], [place] [phone] Type 2 diabetes mellitus with other circulatory complication, with long-term current use of insulin ([facility]) (Primary Dx) Social History Tobacco Use Types Packs/Day Years [...] suspected to have Coronavirus/COVID-19? No / Unsure 03/13/2022 8:46 AM EST documented as of this encounter Miscellaneous Notes * Telephone Encounter - Christina Mckeon MD - 04/03/2022 9:09 AM EST Approving, but needs appt for additional refills. documented in this encounter Plan of Treatment Upcoming Encounters Date Type Department Care Team (Late st Contact Info) Description 08/10/2024 3:15 PM EDT Office Visit [facility] MED & PEDS [address] [place] [address] Christina Mckeon MD [address] [place] [address] 08/28/2024 3:00 PM EDT Medication Management [facility] MED & PEDS [address] [place] [address] Fely So PharmD [address] [place] [address] documented as of this encounter Visit Diagnoses Diagnosis Type 2 diabetes mellitus with other circulatory complication, with long-term current use of insulin ([facility])- Primary documented in this encounter Additional Health Concerns Assessment Noted Time PHQ-9 Depression Total Score: 11 023 9:52 AM EST documented as of this encounter Care Teams Planning Engineer Relationship Specialty Start Date End Date Christina Mckeon MD [address] [place] [address] PCP - General Family Medicine 03/08/18 Fely So, PharmD [address] [place] [address] Pharmacist Internal Medicine 05/03/24 documented as of this encounter
--- OUTSIDE RECORDS SUMMARY | 2024-07-05 16:25 | XMS_ITS | Patient Health Record ---
Author Organization [facility] Address [address] [facility] [place] [address] Care Team Providers Care [employer] Project Manager Name Role Phone Christina Mckeon Primary Care Provider Unavailab Mervat Benson Unavailable [phone] Allergies Allergen (clinical drug ingredient) Drug/Non Drug Allergy documented on EMR Reaction Allergy Type Onset Date Status acetaminophen / oxycodone Percocet Unknown Drug Allergy Active Reason For Referral No Information Medications Medication SIG (Take, Route, Frequency, Duration) Notes Start Date End Date Status Pantoprazole Sodium 40 MG 1 tablet Orally Once a day Active Metoprolol Succinate 25 MG 1 capsule Ora lly Once a day Active Melatonin 3 MG 1 tablet at bedtime as needed Orally Once a day Active Lovastatin 10 MG 1 tablet with the ev ening meal Orally Once a day Active Lisinopril 5 MG 1 tablet Orally Once a day Active Jardiance 10 MG 1 tablet Orally Once a day Active Brilinta 90 MG 1 tablet Orally Twic e a day Active Ferrous Sulfate 32 MG Acti ve Vitamin C Active Aspirin 81 81 MG 1 tablet Orally Once a day Active Vitamin D Active Atorvastatin Calcium 90MG Active Venlafaxine HCl 75 MG 1 tablet with food Orally Once a day Active rOPINIRole HCl 0.5 MG 1 tablet 1 to 3 ho urs before bedtime Orally Once a day Active Extra Depth Orthopedic Shoes (1 Pair) with Customized Heat Molded Multidensity Innersoles (3 Pair) as directed Dx: NIDDM/Polyneuropathy (E11.42), Hammertoe Foot Deformity (M20.41,M20.42), Preulcerative Skin Lesion(s) (L85.1 07/06/2022 Active Social History Tobacco Use: Social History Observation Description Date Details (start date - stop date) Never Smoker NA - NA Tobacco Use/Smoking Question Answer Notes Are you a: nonsmoker Alcohol Screen Question Answer Notes Did you have a drink containing alcohol in the p ast year? No Points 0 Interpretation Negative Tobacco use other than smoking: Question Answer Notes Are you an other tobacco user? No Problems Problem Type SNOMED Code ICD Code Onset Dates Problem Status W/U Status Risk Notes Problem Acquired hammer toe of right foot (643058672939 9105) Other hammer toe(s) (acquired), right foot (M20.41) Active confirmed Problem Acquired hammer toe of left foot (987161342828 9103) Other hammer toe(s) (acquired), left foot (M20.42) Active confirmed Problem 33435222 Type 2 diabetes mellitus with polyneuropathy (E11.42) Active confirmed Encounters Encounter Location Date Provider Diagnosis [facility] [address] [place] [address] 07/08/2023 Mervat Mackey Plan Of Treatment No Information Insurance Providers Payer Name Payer Address Payer Phone Subscriber Number Group Number Insured Name Patient Relationship to Insured Coverage Start Date Coverage End Date [facility] [employer] Claims [address] [place] [phone] [id number] Kelly Silver Self - patient is the insured Medical (General) History Medical History History ICD Code Arthritis Diabetic High blood pressure Numbness Osteoporosis Stroke Mumps Chicken pox Hospitalization History Reason Date(Month/Year) [facility] heart attack 2022
--- OUTSIDE RECORDS SUMMARY | 2024-07-05 16:25 | XMS_ITS | Encounter Summary ---
Author Organization [employer] Address [address] [facility] 7 [place] [address] Care Team Providers Care Surgical Scheduler Name Role Phone Christina Mckeon MD Primary Care Provider [phone] Fely So PharmD Unavailable [phone] Reason for Visit * Reason Onset Date Comments Other 11/12/2022 Encounter Details Date Type Department Care Team ([facility] st Contact Info) Description 11/12/2022 Telephone [facility] CHC MED & PEDS [address] [place], [place] [phone] Christina Mckeon MD [address] [place], [place] [phone] Other Social History Tobacco Use Types Packs/Day Years [...] AM EDT documented as of this encounter Miscellaneous Notes * Telephone Encounter - Abimbola Hernández RN - 11/13/2022 12:49 PM EDT T/C returning to patient. Patient is looking for VNA services for home health aid but needs approval from provider. This message will be sent to provider for review * Telephone Encounter - Tracy Benjamin - 11/12/2022 12:14 PM EDT Tc from patient requesting a call back, in regards to requesting VNA services for [facility]. Patient states PCP would have to approve services. No other details provided. documented in this encounter Plan of Treatment Upcoming Encounters Date Type Department Care Team (Late st Contact Info) Description 08/10/2024 3:15 PM EDT Office Visit [facility] MED & PEDS [address] [place] [address] Christina Mckeon MD [address] [place] [address] 08/28/2024 3:00 PM EDT Medication Management [facility] MED & PEDS [address] [place] [address] Fely So, PharmD [address] [place] [address] documented as of this encounter Visit Diagnoses Not on filedocumented in this encounter Additional Health Concerns Assessment Noted Time PHQ-9 Depression Total Score: 11 023 9:52 AM EST documented as of this encounter Care Teams Surgical Scheduler Relationship Specialty Start Date End Date Christina Mckeon MD [address] [place] [address] PCP - General Family Medicine 03/08/18 Fely So PharmD [address] [place], [place] [phone] Pharmacist Internal Medicine 05/03/24 documented as of this encounter
--- OUTSIDE RECORDS SUMMARY | 2024-07-05 16:25 | XMS_ITS | Clinical Summary ---
Author Organization [employer] Address [address] [facility] [address] [place] [address] Care Team Providers Care Horticultural Specialty Grower Name Role Phone Christina Mckeon MD Primary Care Provider [phone] Fley So PharmD Unavailable [phone] Allergies Active Allergy Reactions Criticality Noted Date Comments Acetaminophen 08/15/2014 Other reaction(s): ANXIETY Citalopram 10/22/2010 Other reaction(s): unspecified Oxycodone 08/15/2014 Other reaction(s): ANXIETY Oxycodone-Acetaminophen 12/11/2020 Other reaction(s): confusion, nausea, vomitting Penicillin V 03/06/2010 Other reaction(s): nausea: vomiting Pioglitazone 05/27/2015 Other reaction(s): Edema Potassium Perchlorate High 08/06/2009 Other reaction(s): vomiting Pregabalin 10/22/2010 Other reaction(s): unspecified Venlafaxine 10/22/2010 Other reaction(s): unspecified Medications acetaminophen (Tylenol) 500 MG tablet Take 1 tablet by mouth every 8 (eight) hours if needed. 022 Active Blood Glucose Monitoring Suppl ([employer]ave Networksuch Verio) w/Device kit Use to test blood sugar two times daily Active Diclofenac Sodium 1 % gel APPLY 2 GRAM'S TO AFFECTED AREA(s) TWICE DAILY NEEDED 100 g 3 024 Active Ferrous Sulfate (iron) 325 (65 Fe) MG tablet TAKE ONE TABLET EVERY MORNING 30 tablet 024 Active Blood Pressure kit Check blood pressure a few times per week 1 kit 025 Active Dulaglutide (Trulicity) 4.5 MG/0.5ML solution auto-injector Inject 4.5 mg under the skin 1 (one) time per week. 2 mL Active Continuous Glucose Sensor (FreeStyle Maribell 3 Plus Sensor) miscIndications: Type 2 diabetes mellitus with polyneuropathy (CMS/HCC) 1 each every 15 days. 2 each Active venlafaxine XR (Effexor XR) 75 MG 24 hr capsuleIndicatio ns:Recurrent major depressive episodes, mild (CMS/HCC) TAKE ONE CAPSULE EVERY MORNING WITH FOOD 30 capsule 5 Active melatonin 3 MG tabletIndication s:Primary insomnia TAKE ONE TABLET EVERY NIGHT AT BEDTIME 60 tablet 025 Active rOPINIRole (Requip) 0.5 MG tablet Take 1 tab orally at 1-3 hours prior bedtime 30 tablet Active pantoprazole (ProtoNix) 40 MG EC tabletIndication s:Hospital discharge follow-up Take 1 tablet (40 mg) by mouth before breakfast. 30 tablet Active glucose blood (OneTouch Verio) test strip Check Blood sugars tid 100 strip Active metoprolol succinate XL (Toprol-XL) 25 MG 24 hr tabletIndication s:Primary hypertension Take 1 tablet (25 mg) by mouth in the morning. Do not crush or chew. 30 tablet 025 Active meclizine (Antivert) 12.5 MG tablet Take 1 tablet (12.5 mg) by mouth if needed in the morning, at noon, and at bedtime for dizziness. 30 tablet Active loratadine (Claritin) 10 MG tablet Take 1 tablet (10 mg) by mouth in the morning. 30 tablet Active Lancets (OneTouch Delica Plus [id number]) misc Check BS tid 100 each Active insulin pen needle (UltiCare Short Pen [place]) 31G X 8 mm miscIndications: Type 2 diabetes mellitus with polyneuropathy (CMS/HCC) USE FOUR DAILY 150 each Active insulin glargine (Lantus SoloStar) 100 UNIT/ML pen Inject 50 units subcutaneously at bedtime 15 mL Active glucose blood (FreeStyle Precision Renny Test) test stripIndications :Type 2 diabetes mellitus with polyneuropathy ([facility]) Test blood sugar up to 3 times daily as directed 100 each Active empagliflozin (Jardiance) 10 MG Take 1 tablet (10 mg) by mouth Once per day. 30 tablet 11 025 2025 Active atorvastatin (Lipitor) 40 MG tablet TAKE ONE TABLET EVERY NIGHT AT BEDTIME 90 tablet 1 Active Ascorbic Acid (vitamin C) 250 MG tablet Take 1 tablet (250 mg) by mouth Once per day. 30 tablet 025 Active Alcohol Swabs (Alcohol Prep) 70 % padsIndications: Type 2 diabetes mellitus with other circulatory complication, with long-term current use of insulin ([facility]) Use tid as needed 100 each Active ketorolac (Acular) 0.5 % ophthalmic solution PLACE ONE DROP IN THE AFFECTED EYE(S) THREE TIMES DAILY STARTING TWO DAYS BEFORE SURGERY THEN DIRECTED 025 Active Continuous Glucose [employer] Project Manager (FreeStyle Maribell 3 [place]) device 025 Active ticagrelor (Brilinta) 90 MG tabletIndication s:Coronary artery disease involving [place] coronary artery of [place] heart without angina pectoris TAKE ONE TABLET IN THE MORNING AND EVENING 60 tablet 025 Active cholecalciferol (Vitamin D-3) 25 MCG tablet TAKE ONE TABLET IN THE MORNING AND EVENING 60 tablet 025 Active aspirin (Aspirin Adult Low Strength) 81 MG EC tabletIndication s:Coronary artery disease involving [place] coronary artery of [place] heart without angina pectoris TAKE ONE TABLET EVERY MORNING 30 tablet 025 Active lisinopril 5 MG tabletIndication s:Primary hypertension TAKE ONE TABLET EVERY MORNING 30 tablet 025 Active insulin pen needle (UltiCare Short Pen [place]) 31G X 8 mm misc USE FOUR DAILY 150 each 5 023 2024 Discontinued(R eorder (will not trigger notification to Pharmacy)) Alcohol Swabs (Alcohol Prep) 70 % padsIndications: Type 2 diabetes mellitus with other circulatory complication, with long-term current use of insulin ([facility]) USE THREE TIMES DAILY DIRECTED 100 each 11 024 2024 Discontinued(R eorder (will not trigger notification to Pharmacy)) loratadine (Claritin) 10 MG tablet TAKE ONE TABLET EVERY MORNING 30 tablet 11 024 2024 Discontinued(R eorder (will not trigger notification to Pharmacy)) meclizine (Antivert) 12.5 MG tablet TAKE ONE TABLET THREE TIMES DAILY NEEDED FOR DIZZINESS 2024 Discontinued(R eorder (will not trigger notification to Pharmacy)) empagliflozin (Jardiance) 10 MG Take 1 tablet (10 mg) by mouth Once per day. 30 tablet 11 2024 Discontinued(R eorder (will not trigger notification to Pharmacy)) rOPINIRole (Requip) 0.5 MG tablet TAKE ONE TABLET EVERY NIGHT AT BEDTIME 1 TO 3 HOURS BEFORE BEDTIME 30 tablet 5 2024 Discontinued(R eorder (will not trigger notification to Pharmacy)) atorvastatin (Lipitor) 40 MG tablet TAKE ONE TABLET EVERY NIGHT AT BEDTIME 90 tablet 1 2024 Discontinued(R eorder (will not trigger notification to Pharmacy)) Ascorbic Acid (vitamin C) 250 MG tablet TAKE ONE TO GUMS EVERY MORNING WITH iron 30 tablet 2024 Discontinued(R eorder (will not trigger notification to Pharmacy)) OneTouch Verio test strip TEST BLOOD SUGAR TWICE DAILY 100 strip 3 2024 Discontinued(R eorder (will not trigger notification to Pharmacy)) Lancets (OneTouch Delica Plus [id number]) misc TEST BLOOD SUGAR TWICE DAILY 100 each 3 025 2024 Discontinued(R eorder (will not trigger notification to Pharmacy)) pantoprazole (ProtoNix) 40 MG EC tabletIndication s:Hospital discharge follow-up TAKE ONE TABLET EVERY MORNING BEFORE BREAKFAST 30 tablet 3 025 2024 Discontinued(R eorder (will not trigger notification to Pharmacy)) insulin glargine (Lantus SoloStar) 100 UNIT/ML pen Inject 50 units subcutaneously at bedtime 15 mL 2024 Discontinued(R eorder (will not trigger notification to Pharmacy)) glucose blood (FreeStyle Precision Renny Test) test stripIndications :Type 2 diabetes mellitus with polyneuropathy (CMS/HCC) Test blood sugar up to 3 times daily as directed 100 each 2024 Discontinued(R eorder (will not trigger notification to Pharmacy)) cholecalciferol (Vitamin D-3) 25 MCG tablet TAKE ONE TABLET IN THE MORNING AND EVENING 60 tablet 025 2024 Discontinued metoprolol succinate XL (Toprol-XL) 25 MG 24 hr tabletIndication s:Primary hypertension TAKE ONE TABLET EVERY MORNING 30 tablet 025 2024 Discontinued(R eorder (will not trigger notification to Pharmacy)) lisinopril 5 MG tabletIndication s:Primary hypertension TAKE ONE TABLET EVERY MORNING 30 tablet 2024 Discontinued ticagrelor (Brilinta) 90 MG tabletIndication s:Coronary artery disease involving [place] coronary artery of [place] heart without angina pectoris TAKE ONE TABLET IN THE MORNING AND EVENING 60 tablet 025 2024 Discontinued aspirin (Aspirin Adult Low Strength) 81 MG EC tabletIndication s:Coronary artery disease involving [place] coronary artery of [place] heart without angina pectoris TAKE ONE TABLET EVERY MORNING 30 tablet 025 2024 Discontinued Active Problems Problem Noted Date Diagnosed Date Acute ST elevation myocardial infarction (STEMI) 04/17/2024 Arteriosclerosis of coronary artery 04/17/2024 Hospital discharge follow-up 02/19/2022 Chest pressure 02/19/2022 Assessment & Plan (02/19/2022 6:32 PM EST): Patient had SKY to LAD on 02/11, she presents today with chest pressure, dizziness, and refers feeling weak, ekg performed found with st changes in v1-v2, no inversion, it could represent reperfusion, But in the setting of pressure and her complains a ambulance was called and patient was sent to er Dizziness 02/19/2022 Hyperglycemia 02/19/2022 Assessment & Plan (02/19/2022 6:36 PM EST): Patient POC glucose reading was >500, sent to er Community acquired pneumonia 02/18/2022 Cerebellar stroke 09/15/2018 Type 2 diabetes mellitus, uncontrolled 8 Recurrent major depressive episodes, mild 2015 Benign paroxysmal positional vertigo 04/01/2015 Palpitations 01/13/2013 Allergic rhinitis 09/29/2011 Depressive disorder 06/02/2011 Type 2 diabetes mellitus with polyneuropathy Disorder of nervous system 06/02/2011 Obesity 06/02/2011 Osteoporosis 06/02/2011 Pure hypercholesterolemia 06/02/2011 Sprain of ankle 06/02/2011 Essential hypertension 06/02/2011 Encounters Date Type Department Care Team Description 07/05/2024 Travel 06/30/2024 Telephone [facility] [address] [place] [address] Fely So, PharmD 06/27/2024 Telephone [facility] [address] [place] [address] Christina Mckeon MD Pre-op 06/20/2024 Refill [facility] [address] [place] [address] Christina Mckeon MD Coronary artery disease involving [place] coronary artery of [place] heart without angina pectoris; Primary hypertension 06/20/2024 Telephone [facility] [address] [place] [address] Christina Mckeon MD Nurse Triage 06/08/2024 9:30 AM EDT Office Visit [facility] [address] [place] [address] Christina Mckeon MD Type 2 diabetes mellitus with polyneuropathy (CMS/HCC) (Primary Dx); Dietary counseling; Exercise counseling; Recurrent major depressive episodes, mild (CMS/HCC); Preop examination 06/08/2024 Travel 06/06/2024 Refill [facility] [address] [place] [address] Christina Mckeon MD Hospital discharge follow-up; Primary hypertension; Type 2 diabetes mellitus with polyneuropathy (CMS/HCC); Type 2 diabetes mellitus with other circulatory complication, with long-term current use of insulin ([facility]) 06/02/2024 Telephone [facility] [address] [place] [address] [place], [facility] telephone call 05/30/2024 Telephone [facility] [address] [place] [address] Fe Seaman, OD 05/24/2024 Refill [facility] [address] [place] [address] Christina Mckeon MD Primary hypertension; Primary insomnia; Coronary artery disease involving [place] coronary artery of [place] heart without angina pectoris 05/23/2024 Refill [facility] [address] [place] [address] Christina Mckeon MD Recurrent major depressive episodes, mild ([facility]) 05/08/2024 Telephone [facility] [address] [place] [address] Christina Mckeon MD PRE OP 05/03/2024 Travel 04/28/2024 Refill [facility] [address] [place] [address] Nikunj Terrazas MD Primary hypertension; Coronary artery disease involving kan[place] coronary artery of [place]at[place] heart without angina pectoris 04/25/2024 Refill [facility] [address] [place] [address] Christina Mckeon MD Hospital discharge follow-up 04/07/2024 Telephone [facility] [address] [place] [address] Fe Seaman, OD from Last 3 Months Immunizations Name Administration Dates Next Due Influenza High-dose Quadriva lent Preservative Free 12/11/2021,12/04/2020,12/13/2019 Influenza injectable quadriv alent IIV4 with preservative 01/18/2018,12/12/2015,12/06/2014 Influenza injectable quadriv alent preservative free 12/02/2022,12/21/2016 Influenza, High Dose Seasona l, Preservative Free 12/10/2023 Influenza, IIV3, injectable 12/11/2021,0 12/04/2020,12/13/2019,2017,12/21/2016,12/12/2015,12/06/2014,1 Influenza, Split (incl. roscoe fied surface antigen) 11/22/2012,11/04/2011 Pfizer Covid-19 Vaccine 12+ 12/10/2023 Pneumococcal Conjugate PCV 13 12/06/2014 Pneumococcal Conjugate PCV 20 07/05/2024 Tdap 06/16/2017 Zoster, Recombinant 05/03/2024,12/29/2019 Zoster, live 12/19/2013 Social History Tobacco Use Types Packs/Day Years Used Date Smoking Tobacco: Never Passive Smoke Exposure: Never Smokeless Tobacco: Never Tobacco Cessation:Counseling Given: Not Answered Depression Answer Date Recorded Patient Health Questionnaire-9 [...] Orientation Straight 01/05/2022 10 :20 AM EDT Last Filed Vital Signs Vital Sign Reading Time Taken Comments Blood Pressure 152/75 06/08/2024 9:33 AM EDT Pulse 82 06/08/2024 9:33 AM EDT Temperature 36.7 ??C (98.1 ??F) 06/08/2024 9:33 AM ED T Respiratory Rate 20 06/08/2024 9:33 AM EDT Oxygen Saturation 96% 06/08/2024 9:33 AM EDT Inhaled Oxygen Concentration - - Weight 63.5 kg (140 lb) 06/08/2024 9:33 AM EDT Height 155.3 cm (5' 1.13 ) 06/08/2024 9:33 AM ED T Body Mass Index 26.34 06/08/2024 9:33 AM EDT Plan of Treatment Upcoming Encounters Date Type Department Care Team (Late st Contact Info) Description 08/10/2024 3:15 PM EDT Office Visit [facility] [address] [place] [address] Christina Mckeon MD [address] [place] [address] 08/28/2024 3:00 PM EDT Medication Management [facility] [address] [place] [address] Fely So, PharmD [address] [place] [address] Health Maintenance Due Date Last Done Comments CT Colonography 1950 Colonoscopy 1950 Colorectal Cancer Screening 1950 FIT DNA/Cologuard 1950 FIT 1950 FOBT 1950 Sigmoidoscopy 1950 Alcohol/Substance Use Screening 1961 Hepatitis C Screening 1967 Diabetes: Urine Protein Screening 11/04/2023 11/03/2022, 05/07/2021, 05/24/2020, Additional history exists Lipid Panel 11/04/2023 11/03/2022, 12/11/2019 Diabetes: Foot Exam 12/03/2023 12/02/2022, 12/02/2022, 12/02/2022, Additional history exists RSV Patients and Patients Aged 60 years or older (1 - 1-dose 75+ series) 02/12/2024 Diabetes: Hemoglobin A1C 10/04/2024 025, 05/03/2024, 12/10/2023, Additional history exists Depression Screening 06/08/2025 06/08/2024, 06/09/19 25 SDOH Screening 06/08/2025 06/08/2024 Tobacco Screening 06/08/2025 06/08/2024 Eye Exam 04/05/2026 04/05/2024, 03/09, 04/05/2024, Additional history exists DTaP/Tdap/Td Vaccines (2 - Td or Tdap) 06/17/2027 06/16/2017 COVID-19 Vaccine Completed 12/10/2023, 12/2021, 05/29/2020 Influenza Vaccine Completed 12/10/2023, , 12/11/2021, Additional history exists Zoster Vaccines Completed 05/03/2024, 12/07, 12/19/2013 Pneumococcal Vaccine: 50+ Years Completed 07/05/2024, 12/06/2014 HIB Vaccines Aged Out No longer eligi ble based on patient's age to complete this topic HPV Vaccines Aged Out No longer eligi ble based on patient's age to complete this topic Hepatitis A Vaccines Aged Out No long er eligible based on patient's age to complete this topic Hepatitis B Vaccines Aged Out No long er eligible based on patient's age to complete this topic IPV Vaccines Aged Out No longer eligi ble based on patient's age to complete this topic Meningococcal Vaccine Aged Out No edna reshma eligible based on patient's age to complete this topic RSV under 20 months Aged Out No longe r eligible based on patient's age to complete this topic Rotavirus Vaccines Aged Out No longer eligible based on patient's age to complete this topic Procedures Procedure Name Priority Date/Time Associated Diagnosis Comments POCT GLYCATED HEMOGLOBIN, TOTAL Routine 07/05/2024 2:30 PM EDT Type 2 diabetes mellitus with polyneuropathy (CMS/HCC) POCT GLYCATED HEMOGLOBIN, TOTAL Routine 05/03/2024 4:25 PM EST Type 2 diabetes mellitus with polyneuropathy (CMS/HCC) ALBUMIN, RANDOM URINE W/CREATININE Routine 11/03/2022 8:58 AM EDT LIPID PANEL, STANDARD Routine 11/03/2022 8:53 AM EDT Diabetes mellitus without complication (CMS/HCC) from Last 3 Months or Most Recently Relevant to Health Maintenance Results * (ABNORMAL) POCT A1C (07/05/2024 2:30 PM EDT) Only the most recent of2 resultswithin the time period is included. Hemoglobin A1C 8.3(A) 4.0 - 6.0 % QC Media Lot # [id number] Lot# Expiration Date Blood 07/05/2024 2:30 PM EDT Christina Mckeon MD POINT OF CARE TEST ENTER/EDIT ORDERABLES Final Result * Albumin, Random Urine W/Creatinine (11/03/2022 8:58 AM EDT) Creatinine, Urine 59.07 mg/dL [facility] Microalbumin Urine <5.0 mg/L [facility] Microalbum Creatinine Ratio Ur TNP <30 ug/mg cr [facility] Comment:Unable to calculate albumin/creatinine ratio due to lowmicroalbumin or creatinine result. 11/03/2022 8:58 AM EDT 11/03/2022 2:47 PM EDT us Christina Mckeon MD LAB URINE ORDERABLES Final Re sult [facility] [address] [place] [phone] * (ABNORMAL) Lipid Panel, Standard (11/03/2022 8:53 AM EDT) Triglycerides 185(H) <150 mg/dL [facility] Comment:Desirable Triglyceri de: less than 150 mg/dLBorderline High Triglyceride 150-199 mg/dLHigh Triglyceride: 200-499 mg/dLVery High Triglyceride: greater than or equal to 5OO mg/dL Cholesterol 92 <200 mg/dL [facility] Comment:Desirable Cholestero l: less than 200 mg/dLBorderline High Cholesterol: 200-239 mg/dLHigh Cholesterol: greater than 239 mg/dL LDL Cholesterol Calculated 27 <100 mg/dL [facility] Comment:Desirable LDL: less than 100 mg/dLNear Optimal/Above Optimal LDL: 110- 129 mg/dLBorderline High LDL: 130-159 mg/dLHigh LDL: 160-189 mg/dLVery High LDL: greater than or equal to 190 mg/dL HDL Cholesterol 28(L) >40 mg/dL [facility] Comment:Desirable HDL: great er than 40 mg/dL Note: This HDL assay may give artificially low results in patients with liver disease. Blood Venous blood specimen / Unknown 11/03/2022 8:53 AM EDT 11/03/2022 2:32 PM EDT us Christina Mckeon MD LAB BLOOD ORDERABLES Final Re sult [facility] [address] [place] [address] [phone] from Last 3 Months or Most Recently Relevant to Health Maintenance Insurance [employer] (HMO D-SNP) [place] [id number] Care Teams Horticultural Specialty Grower Relationship Specialty Start Date End Date Christina Mckeon MD [address] [place] [phone] PCP - General Family Medicine 03/08/18 Fely So PharmD [address] [place] [phone] Pharmacist Internal Medicine 05/03/24
--- OUTSIDE RECORDS SUMMARY | 2024-07-05 16:25 | XMS_ITS | Encounter Summary ---
Author Organization [employer] Address [address] [place] [address] Care Team Providers Care Tree Surgeon Helper Name Role Phone Christina Mckeon MD Primary Care Provider [phone] Fely So PharmD Unavailable [phone] Encounter Details Date Type Department Care Team ([facility] st Contact Info) Description 06/30/2024 Telephone [facility] [address] [place], [place] [phone] Fely So, PharmD [address] [place] [address] Social History Tobacco Use Types Packs/Day Years [...] encounter Miscellaneous Notes * Telephone Encounter - Fely So PharmD - 06/30/2024 10:37 AM EDT Images from the original note were not included. Addendum 3:00pm tried calling patient to discuss the following, no answer. Will try again next week Patient rescheduled yesterday's CDTM appointment, however brought [employer] Maribell reader today for download. Patient unable to stay any longer to discuss hypoglycemic events or clarify current insulin regimen. Plan to call patient later today. Patient noted to still be wearing a sensor despite it no longer being active. Patient reports beingunaware of the need to change it every 15 days, although this was reviewed during CGM teaching. Patient agrees to remove it and apply a new one upon returning home. documented in this encounter Plan of Treatment Upcoming Encounters Date Type Department Care Team (Late st Contact Info) Description 08/10/2024 3:15 PM EDT Office Visit [facility] [address] [place] [address] Christina Mckeon MD [address] [place] [address] 08/28/2024 3:00 PM EDT Medication Management [facility] [address] [place] [address] Fely So PharmD [address] [place] [address] documented as of this encounter Visit Diagnoses Not on filedocumented in this encounter Additional Health Concerns Assessment Noted Time PHQ-9 Depression Total Score: 6 06/09/19 25 9:34 AM EDT documented as of this encounter Care Teams Tree Surgeon Helper Relationship Specialty Start Date End Date Christina Mckeon MD [address] [place] [address] PCP - General Family Medicine 03/08/18 Fely So, PharmD [address] [place] [address] Pharmacist Internal Medicine 05/03/24 documented as of this encounter
--- OUTSIDE RECORDS SUMMARY | 2024-07-05 16:25 | XMS_ITS ---
Author Organization [facility] Address [address] [place] [address] [place] [address] Care Team Providers Care Children'S Service Worker Name Role Phone Christina Mckeon Primary Care Provider Unavailab Mervat Benson Unavailable [phone] REASON FOR VISIT NS 07/07 Encounters Encounter Location Date Provider Diagnosis [address] [place] [address] 07/08/2023 Mervat Mackey Plan Of Treatment No Information Progress Notes * Killian LOGANB:1949 (73 yo F)Acc No.[id number]:07/08/2023 Patient:?Nadeem Kelly :1950???Age:73 Y???Sex:Female Address:[address] [place] [address], [facility] [address], [place] [address] * true * Date:? Generated for Joao pitts/Arturo/eTransmitting on:?07/05/2024 09:05 AM EDT
--- OUTSIDE RECORDS SUMMARY | 2024-07-05 16:25 | XMS_ITS | Encounter Summary ---
Author Organization [employer] Address [address] [facility] [address] [place] [address] Care Team Providers Care Movable Bulkhead Installer Name Role Phone Christina Mckeon MD Primary Care Provider [phone] Fely So PharmD Unavailable [phone] Reason for Visit * Reason Onset Date Comments Reschedule 02/23/2023 Encounter Details Date Type Department Care Team ([facility] st Contact Info) Description 02/23/2023 Telephone [facility] MEDICINE [address] [place] [address] Christina Mckeon MD [address] [place] [address] Reschedule Social History Tobacco Use Types Packs/Day Years Used Date Smoking Tobacco: Never Passive Smoke Exposure: Never Smokeless Tobacco: Never Depression Answer Date Recorded Patient Health Questionnaire-9 Score 11 03/13/2022 Housing Stability Answer Date Recorded What is your housing situation today? I have fidel ocasio 12/22/[address] you li ve. Do you have problems with any of the following? None of the above 12/22/2022 Food Insecurity Answer Date Recorded Within the past 12 months, y ou worried that your food would run out before you got money to buy more: Sometimes True 2022 Within the past 12 months,th e food you bought just didn't last and you didn't have enough money to get more: Never True 12/22/2022 Transportation Answer Date Recorded In the past 12 months, has l ack of transportation kept you from medical appts, meetings, work or from getting things needed for daily living? No 12/22/2022 Utilities Answer Date Recorded In the past 12 months, has t he electric, gas, oil or water company threatened to shut off services in your home? No 12/22/2022 Depression Answer Date Recorded Patient Health Questionnaire-2 Score 5 03/13/2022 Comments Unknown Sex and Gender Information Value Date Recorded Sex Assigned at Female 01/05/2022 10:20 AM EDT Legal Sex Female 10:20 AM EDT Gender Identity Female 01/05/2022 10:20 AM EDT Sexual Orientation Straight 01/05/2022 10 :20 AM EDT documented as of this encounter Miscellaneous Notes * Telephone Encounter - Lea Baxter - 02/23/2023 9:56 AM EST Tc from pt requesting r/s appt for Apr 08 1:15 on the afternoon. documented in this encounter Plan of Treatment Upcoming Encounters Date Type Department Care Team (Late st Contact Info) Description 08/10/2024 3:15 PM EDT Office Visit [facility] MED & PEDS [address] [place] [address] Christina Mckeon MD [address] [place] [address] 08/28/2024 3:00 PM EDT Medication Management [facility] [address] [place] [address] Fely So PharmD [address] [place], [place] [phone] documented as of this encounter Visit Diagnoses Not on filedocumented in this encounter Additional Health Concerns Assessment Noted Time PHQ-9 Depression Total Score: 11 023 9:52 AM EST documented as of this encounter Care Teams Movable Bulkhead Installer Relationship Specialty Start Date End Date Christina Mckeon MD [address] [place] [address] PCP - General Family Medicine 03/08/18 SoFely PharmD [address] [place] [address] Pharmacist Internal Medicine 05/03/24 documented as of this encounter
--- OUTSIDE RECORDS SUMMARY | 2024-07-05 16:25 | XMS_ITS | Encounter Summary ---
Author Organization [employer] Address [address] [place] [address] Care Team Providers Care Magnetic Tape Composer Operator Name Role Phone Christina Mckeon MD Primary Care Provider [phone] Fely So PharmD Unavailable [phone] Reason for Visit * Reason Comments Med Refill Encounter Details Date Type Department Care Team ([facility] st Contact Info) Description 01/11/2023 Refill [facility] PEDS [address] [place], [place] [phone] Florence Charles MD [address] [place], [place] [phone] Social History Tobacco Use Types Packs/Day Years Used Date Smoking Tobacco: Never Passive Smoke Exposure: Never Smokeless Tobacco: Never Depression Answer Date Recorded Patient Health Questionnaire-9 Score 11 03/13/2022 Housing Stability Answer Date Recorded What is your housing situation today? I have fidel amarjit 12/22/[address] you li [...] Description 08/10/2024 3:15 PM EDT Office Visit [facility] MED & PEDS [address] [place] [address] Christina Mckeon MD [address] [place] [address] 08/28/2024 3:00 PM EDT Medication Management [facility] MED & PEDS [address] [place] [address] Fely So, PharmD [address] [place] [address] documented as of this encounter Visit Diagnoses Not on filedocumented in this encounter Additional Health Concerns Assessment Noted Time PHQ-9 Depression Total Score: 11 023 9:52 AM EST documented as of this encounter Care Teams Magnetic Tape Composer Operator Relationship Specialty Start Date End Date Christina Mckeon MD [address] [place] [address] PCP - General Family Medicine 03/08/18 Fely So PharmD [address] [place], [place] [phone] Pharmacist Internal Medicine 05/03/24 documented as of this encounter
--- OUTSIDE RECORDS SUMMARY | 2024-07-05 16:25 | XMS_ITS | Encounter Summary ---
Author Organization [employer] Address [address] [facility] [address] [place] [address] Care Team Providers Care Drink Waiter Name Role Phone Christina Mckeon MD Primary Care Provider [phone] Fely So PharmD Unavailable [phone] Encounter Details Date Type Department Care Team ([facility] st Contact Info) Description 12/07/2023 Telephone [facility] MEDICINE [address] [place], [place] [phone] Christina Mckeon MD [address] [place], [place] [phone] Social History Tobacco Use Types Packs/Day Years Used Date Smoking Tobacco: Never Passive Smoke Exposure: Never Smokeless Tobacco: Never Depression Answer Date Recorded Patient Health Questionnaire-9 Score 11 03/13/2022 Housing Stability Answer Date Recorded What is your housing situation today? I have fideljohnny ocasio 12/22/[address] you [...] t he electric, gas, oil or water [employer] threatened to shut off services in your [...] Description 08/10/2024 3:15 PM EDT Office Visit [facility] MED & PEDS [address] [place] [address] Christina Mckeon MD [address] [place] [address] 08/28/2024 3:00 PM EDT Medication Management [facility] MED & PEDS [address] [place] [address] Fely So, PharmD [address] [place] [address] documented as of this encounter Visit Diagnoses Not on filedocumented in this encounter Additional Health Concerns Assessment Noted Time PHQ-9 Depression Total Score: 11 023 9:52 AM EST documented as of this encounter Care Teams Drink Waiter Relationship Specialty Start Date End Date Christian Mckeon MD [address] [place] [address] PCP - General Family Medicine 03/08/18 Fely So, PharmD [address] [place] [address] Pharmacist Internal Medicine 05/03/24 documented as of this encounter
[2024-07-05 18:40] LABS: Creatinine Urine 64.38 mg/dL; Microalbum/Creatinine Ratio Ur 12.4 ug/mg cr (<30)
[2024-07-05 18:40] LABS: Cholesterol 115 mg/dL (<200); HDL Cholesterol 32 mg/dL (>40); LDL Cholesterol Calculated 55 mg/dL (<100); Triglycerides 142 mg/dL (<150)
[2024-07-05 18:41] LABS: Alanine Aminotransferase 31 U/L (0-31); Albumin Level 4.1 g/dL (3.5-5.0); Alkaline Phosphatase 94 U/L (39-117); Anion Gap 14 (12-20); Aspartate Amino Transferase 33 U/L (5-31); Bilirubin Total 0.3 mg/dL (0.0-1.0); Blood Urea Nitrogen 19 mg/dL (9-16); Calcium 9.5 mg/dL (8.4-10.2); Carbon Dioxide 25 mmol/L (22-29); Chloride 107 mmol/L (96-108); Estimated Glomerular Filt Rate 56; Glucose Random 194 mg/dL (60-115); Potassium 4.4 mmol/L (3.3-5.1); Sodium 142 mmol/L (135-145); Total Protein 6.9 g/dL (6.5-8.0)
== END 2024-07-05 15:30 | disposition home or self-care (01) ==
LOC: HO.CHCLDS 15:29
PROVIDERS: PCP Pediatrics; Visit Provider Internal Medicine
DX: E11.42 Type 2 diabetes mellitus with diabetic polyneuropathy (principal)
CPT/HCPCS: 36415; 80053; 80061; 82043; 82570